=== PATIENT | male | born 1955 | race Caucasian/White ===

== ENCOUNTER → 2017-07-09 | Outpatient (CLI) | payer OTHER | LOC: FIMAGING 10:46 | PROVIDERS: ATTEND Physical Medicine & Rehabilitation Pain Medicine | DX: M51.16 Intervertebral disc disorders with radiculopathy, lumbar region (principal); M46.97 Unspecified inflammatory spondylopathy, lumbosacral region ==

== ENCOUNTER 2018-01-04 13:51 | Emergency (ER) | payer OTHER ==
[2018-01-04 14:00] VITALS: BP 141/87
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
== END 2018-01-04 15:08 | disposition home or self-care (01) ==
DX: Z02.83 Encounter for blood-alcohol and blood-drug test (principal); Z04.71 Encounter for examination and observation following alleged adult physical abuse
CPT/HCPCS: 80305; 80307; G0483